=== PATIENT | female | born 1965 ===

== ENCOUNTER 2021-08-22 05:00 | Day surgery (SDC) | payer OTHER ==
[~2021-08-22 05:00] MED LIST: IRBESARTAN150 MG PO; TOPROL XL50 M1 PO
== END 2021-08-22 20:30 | disposition home or self-care (01) ==
LOC: CIR.AMB 05:00
PROVIDERS: ATTEND Obstetrics & Gynecology
DX: N84.0 Polyp of corpus uteri (principal); Z20.822 Contact with and (suspected) exposure to COVID-19